=== PATIENT | female | born 1960 | race Caucasian/White ===

== ENCOUNTER 2019-08-04 16:23 | Emergency (ER) | payer MEDICAID ==
[~2019-08-04] VITALS: Ht 162.6 cm; Wt 81.6 kg
[2019-08-04 16:25] VITALS: BP_SYST 99
[2019-08-04 18:21] VITALS: BP_SYST 108
== END 2019-08-04 18:21 | disposition home or self-care (01) ==
LOC: SED 16:23
DX: L97.529 Non-pressure chronic ulcer of other part of left foot with unspecified severity (principal); K21.9 Gastro-esophageal reflux disease without esophagitis; E11.9 Type 2 diabetes mellitus without complications; I10 Essential (primary) hypertension; F20.9 Schizophrenia, unspecified
CPT/HCPCS: 93005; 99283